=== PATIENT | male | born 1985 | race Caucasian/White ===

== ENCOUNTER 2021-02-17 17:56 | Emergency (ER) | payer MEDICARE ==
[~2021-02-17] VITALS: Ht 175.3 cm; Wt 126.0 kg
[2021-02-17 18:47] VITALS: BP 148/96
[2021-02-17] MEDS ORDERED: KETOROLAC 60MG/2ML VIAL IM ONE (19:45)
[2021-02-17] MEDS ORDERED: IBUP-2028 MT (19:49)
== END 2021-02-17 21:06 | disposition home or self-care (01) ==
LOC: ER 17:56
DX: M54.6 Pain in thoracic spine (principal); J45.909 Unspecified asthma, uncomplicated
CPT/HCPCS: 96372; 99283; J1885